=== PATIENT | male | born 1940 | race Caucasian/White ===

== ENCOUNTER 2018-11-03 06:52 | Day surgery (SDC) | payer MEDICARE, OTHER ==
[2018-11-03] MEDS ORDERED: Lactated Ringers 1,000 ML IV SCH (07:30)
[2018-11-03] MEDS ORDERED: Propofol 200 MG/20 ML SDV ONE (08:25)
[2018-11-03] MEDS ORDERED: fentaNYL 100 MCG/2 ML SDV ONE (08:25)
--- NOTE | 2018-11-03 15:32 | OR ---
DATE OF PROCEDURE: 11/03/2018 PREOPERATIVE DIAGNOSIS: History of colon polyps. POSTOPERATIVE DIAGNOSES: Peace-diverticulosis; 2 small colon polyps, transverse colon and 30 cm from the anal verge; and history of colon polyps. PROCEDURES: Colonoscopy to the ileocolic anastomosis, biopsy resection of polyps in the transverse colon and at 30 cm from the anal verge. SURGEON: Tal Mckeon MD ANESTHESIA: IV anesthesia with monitored anesthesia care. INDICATION: This 78-year-old white male is referred for a colonoscopy because of a history of colon polyps. He says his last colonoscopic exam was done at [facility], in [place], 6 years ago. I counseled him for the procedure, including risks and alternatives , and he gave his informed consent to proceed. DESCRIPTION OF PROCEDURE: The patient was placed in the left lateral decubitus position. IV anesthesia was administered by the Anesthesia Service. Time-out was held. A rectal exam was performed, which was unremarkable. The flexible video Olympus colonoscope was introduced through his anus, up his rectum and out his colon all the way to the ileocolic anastomosis. En route, we saw multiple diverticula throughout the entire colon. Additionally, en route to the anastomosis, we encountered a polyp in the transverse colon, which was removed with the biopsy forceps. Once the anastomosis was reached, the scope was slowly withdrawn examining the mucosa throughout. No additional mucosal abnormalities were noted, until we reached 30 cm from the anal verge. Here, another small polyp was seen which was removed with the biopsy forceps. The scope was brought back into the rectum , where it was retroflexed. The distal rectum appeared unremarkable. The scope was straightened and removed. He tolerated the procedure well. Tal Mckeon MD /[id number] MTDMer
== END 2018-11-03 10:15 | disposition home or self-care (01) ==
LOC: JP.SDS 06:52
PROVIDERS: ATTEND Surgery
DX: Z12.11 Encounter for screening for malignant neoplasm of colon (principal); D12.3 Benign neoplasm of transverse colon; K63.5 Polyp of colon; K57.30 Diverticulosis of large intestine without perforation or abscess without bleeding; K22.70 Barrett's esophagus without dysplasia; K21.9 Gastro-esophageal reflux disease without esophagitis; I50.9 Heart failure, unspecified; E78.5 Hyperlipidemia, unspecified; E66.9 Obesity, unspecified; N18.9 Chronic kidney disease, unspecified; Z86.73 Personal history of transient ischemic attack (TIA), and cerebral infarction without residual deficits; Z86.010 Personal history of colon polyps
CPT/HCPCS: 45380; J2704; J3010; J7120; 88305

== ENCOUNTER 2020-02-18 05:34 | Emergency (ER) | payer MEDICARE ==
--- NOTE | 2020-02-18 06:09 | EDM.PDOC ---
<OfficerCristopher - Last Filed: 02/18/20 06:06> ED HPI GENERAL MEDICAL PROBLEM - General Chief Complaint: General Stated Complaint: BLURRY VISION Time Seen by Provider: 02/18/20 05:57 Source of Information: Reports: Patient, RN Notes Reviewed History Limitations: Reports: No Limitations - History of Present Illness INITIAL COMMENTS - FREE TEXT/NARRATIVE: 79-year-old gentleman presents emergency department today with complaint of confusion, he believes he may have had a stroke this morning. He states he was unable to finish his normal routine he had an event which lasted about 3 to 4 minutes felt like he was going to was disorientated and confused. He was able to drive himself here he is able to ambulate without difficulty no loss of motor function he feels he is back to his baseline at this time however he feels something is off difficult for him to describe this. - Related Data Allergies Allergy/AdvReac Type Severity Reaction Status Date / Time azithromycin [From Zithromax] Allergy Dizziness Verified 02/18/20 05:49 Home Meds: Home Meds Aspirin [Halfprin] 81 mg PO DAILY 11/01/18 [History] Enalapril Maleate 10 mg PO DAILY 11/01/18 [History] Ferrous Sulfate [Feosol] 325 mg PO DAILY 11/01/18 [History] Omeprazole 20 mg PO Q48H 11/01/18 [History] Psyllium [Metamucil] 1 gm PO DAILY 11/01/18 [History] Simvastatin [Zocor] 20 mg PO DAILY 11/01/18 [History] Warfarin Sodium 5 mg PO ASDIRECTED 11/01/18 [History] Zinc Acetate [Galzin] 25 mg PO DAILY 11/01/18 [History] carvediloL [Carvedilol] 25 mg PO BID 11/01/18 [History] Tamsulosin HCl 1 tab PO Q48H 02/18/20 [History] Past Medical History HEENT History: Reports: Impaired Vision Cardiovascular History: Reports: Afib, Bypass, CAD, Heart Valve Replacement, High Cholesterol, Hypertension, NM Gastrointestinal History: Reports: Colon Polyp, GERD Genitourinary History: Reports: Prostate Disorder Musculoskeletal History: Reports: Arthritis, Back Pain, Chronic, Neck Pain, Chronic Neurological History: Reports: TIA Other Neuro History: tia 14 years ago Hematologic History: Reports: Anticoagulation Therapy - Infectious Disease History Infectious Disease History: Reports: Chicken Pox, Measles, Mumps - Past Surgical History Cardiovascular Surgical History: Reports: Coronary Artery Bypass, Valve Replacement, Other (See Below) Other Cardiovascular Surgeries/Procedures: Not a valve replacement, it was a repair with an O ring placed GI Surgical History: Reports: Colonoscopy, Hernia Repair/Other, Polypectomy, Small Bowel Other GI Surgeries/Procedures: intestinal surgery about 6 years ago Social & Family History - Tobacco Use Tobacco Use Status *Q: Never Tobacco User - Caffeine Use Caffeine Use: Reports: Coffee - Recreational Drug Use Recreational Drug Use: No ED ROS GENERAL - Review of Systems Review Of Systems: See Below Constitutional: Reports: No Symptoms HEENT: Reports: Vision Change (Now returned to baseline) Respiratory: Reports: No Symptoms Cardiovascular: Reports: No Symptoms GI/Abdominal: Reports: No Symptoms : Reports: No Symptoms Musculoskeletal: Reports: No Symptoms Neurological: Reports: Confusion Psychiatric: Denies: Anxiety ED EXAM, GENERAL - Physical Exam Exam: See Below Exam Limited By: No Limitations General Appearance: Alert, WD/WN, No Apparent Distress Eye Exam: Bilateral Eye: EOMI, Normal Inspection, PERRL Throat/Mouth: Normal Inspection, Normal Lips, Normal Teeth, Normal Gums, Normal Oropharynx, Normal Voice, No Airway Compromise Head: Atraumatic, Normocephalic Neck: Normal Inspection, Supple, Non-Tender, Full Range of Motion Respiratory/Chest: No Respiratory Distress, Lungs Clear, Normal Breath Sounds, No Accessory Muscle Use, Chest Non-Tender Cardiovascular: Regular Rate, Rhythm, No Murmur GI/Abdominal: Soft, Non-Tender Extremities: No Pedal Edema Neurological: Alert, Oriented, CN II-XII Intact, Normal Cognition, Normal Gait, No Motor/Sensory Deficits Departure - Departure Disposition: Home, Self-Care 01 Clinical Impression: TIA (transient ischemic attack) - Discharge Information Instructions: Transient Ischemic Attack, [id number] Referrals: Belinda Seals PA-C [Primary Care Provider] - Forms: ED Department Discharge Care Plan Goals: pt has a disabled at home and is willing to do a outpt work up for the TIA. He will have a ECho done prior to leaving. He will have a 48 hour holter monitor placed. He will see Belinda Seals in the next 2-3 days. Pt will return to ER if pt has any sig symptoms. Pt is on coumadin and his INR was ok. Sepsis Event Note (ED) - Evaluation Sepsis Screening Result: No Definite Risk <Letitia Knapp - Last Filed: 02/19/20 07:58> ED ROS GENERAL - Review of Systems Review Of Systems: See Below ED EXAM, GENERAL - Physical Exam Exam: See Below Course - Vital Signs Last Recorded V/S: Last Vital Signs Temp 34.7 C L 02/18/20 06:05 Pulse 72 02/18/20 06:05 Resp 11 L 02/18/20 06:05 BP 156/83 H 02/18/20 06:05 Pulse Ox 98 02/18/20 06:05 - Orders/Labs/Meds Orders: Active Orders 24 hr Category Date Time Status Echo Comp wo Cont [US] Stat Exams 02/18/20 07:41 Taken Holter Monitor 48 Hr [EK] Routine Ther 02/18/20 07:43 Ordered Labs: Laboratory Tests 02/18/20 02/18/20 02/18/20 Range/Units 06:00 06:00 06:00 WBC 5.6 (4.5-11.0) K/uL RBC 3.92 L (4.30-5.90) M/uL Hgb 11.7 L (12.0-15.0) g/dL Hct 37.4 L (40.0-54.0) % MCV 95 (80-98) fL MCH 30 (27-31) pg MCHC 31 L (32-36) % Plt Count 177 (150-400) K/uL Neut % (Auto) 69 H (36-66) % Lymph % (Auto) 18 L (24-44) % Lamar % (Auto) 10 H (2-6) % Eos % (Auto) 3 (2-4) % Baso % (Auto) 1 (0-1) % PT 24.5 H (9.5-12.0) sec INR 2.28 H (0.80-1.20) Sodium 137 L (140-148) mmol/L Potassium 4.8 (3.6-5.2) mmol/L Chloride 104 (100-108) mmol/L Carbon Dioxide 26 (21-32) mmol/L Anion Gap 11.8 (5.0-14.0) mmol/L BUN 20 H (7-18) mg/dL Creatinine 1.4 H (0.8-1.3) mg/dL Est Cr Clr Drug Dosing 44.18 mL/min Estimated GFR (MDRD) 49 L (>60) Glucose 108 H (74-106) mg/dL Calcium 8.5 (8.5-10.1) mg/dL Total Bilirubin 0.5 (0.2-1.0) mg/dL AST 29 (15-37) U/L ALT 26 (12-78) U/L Alkaline Phosphatase 82 (46-116) U/L Troponin I < 0.017 (0.000-0.056) ng/mL Total Protein 6.8 (6.4-8.2) g/dL Albumin 3.4 (3.4-5.0) g/dL Globulin 3.4 (2.3-3.5) g/dL Albumin/Globulin Ratio 1.0 L (1.2-2.2) - Re-Assessments/Exams Free Text/Narrative Re-Assessment/Exam: 02/18/20 07:40 pt was very clear and was up ambulating. He had been doing some work on the floor and had some aching in chest. His Ekg looked good. His cat scan of the head was normal except for aging changes. 02/18/20 07:44 02/19/20 07:56 pt insisted on going home because of his . He had a echo prior to leaving which was normal. He had a 48 hour holter monitor. He will see Belinda Seals in the next 2-3 days. Departure - Departure Time of Disposition: 10:10 Condition: Fair - My Orders Last 24 Hours: My Active Orders 02/18/20 07:41 Echo Comp wo Cont [US] Stat 02/18/20 07:43 Holter Monitor 48 Hr [EK] Routine - Assessment/Plan Last 24 Hours: My Active Orders 02/18/20 07:41 Echo Comp wo Cont [US] Stat 02/18/20 07:43 Holter Monitor 48 Hr [EK] Routine
--- NOTE | 2020-02-18 07:14 | CRLCT ---
INDICATION: Confusion COMPARISON: None TECHNIQUE: CT examination of the head was performed as axial sections without intravenous contrast. Images were obtained from the vertex of the skull through the skull base. Please note that all CT scans at this facility use dose modulation, iterative reconstruction, and/or weight-based dosing when appropriate to reduce radiation dose to as low as reasonably achievable. FINDINGS: The brain shows no sign of mass lesion, mass effect, hemorrhage, or edema. There are involutional changes. There is moderate cortical atrophy and there is moderate white matter disease. There is no hydrocephalus. The visualized portions of the orbits are normal in appearance. The osseous structures are normal in appearance with no sign of abnormality in the skull base or calvarium. IMPRESSION: Involutional changes. No acute-appearing findings. Please note that all CT scans at this facility use dose modulation, iterative reconstruction, and/or weight-based dosing when appropriate to reduce radiation dose to as low as reasonably achievable. Dictated by Ant Méndez MD @ Feb 18 2020 7:11AM Signed by Dr. Ant Méndez @ Feb 18 2020 7:13AM
--- NOTE | 2020-02-19 12:09 | LETTER ---
02/19/[address] [address] [facility] [place] [id number] RE: LEROY GARZA : 1940 Dear Leroy: You recently were at the emergency room and at that time you had an episode where you felt very confused and were not able to function and do your usual morning activities. For this reason, a CAT scan of the head was obtained while you were in the ER, which was found to be normal. You did have an echocardiogram and the echo at this point shows good heart function, regular rhythm, and did not show any real significant valvular abnormalities. There were no sign of clot present in the atrium. At this time, I would consider this a normal for age echocardiogram. Sincerely, /[id number]
== END 2020-02-18 10:05 | disposition home or self-care (01) ==
LOC: JP.ED 05:34
DX: G45.9 Transient cerebral ischemic attack, unspecified (principal); I10 Essential (primary) hypertension; I25.10 Atherosclerotic heart disease of native coronary artery without angina pectoris; I48.91 Unspecified atrial fibrillation; E78.00 Pure hypercholesterolemia, unspecified; Z88.1 Allergy status to other antibiotic agents; Z79.82 Long term (current) use of aspirin; Z79.899 Other long term (current) drug therapy
CPT/HCPCS: 36415; 70450; 80053; 84484; 85025; 85610; 93005; 93225; 93226; 93306; 99285-25

== ENCOUNTER 2024-09-25 15:13 | Emergency (ER) | payer MEDICARE ==
[2024-09-25] MEDS ORDERED: Sodium Chloride 0.9% 10 ML Syringe FLUSH PRN (15:15)
[2024-09-25 15:22] LABS: BASOPHILS ABSOLUTE AUTO 0.03 K/uL (0.00-0.10); BASOPHILS PERCENT AUTO 0.3 % (0.1-1.3); EOSINOPHILS ABSOLUTE AUTO 0.29 K/uL (0.00-0.40); EOSINOPHILS PERCENT AUTO 3.2 % (0.0-5.4); HEMATOCRIT 36.9 % (38.4-49.7); HEMOGLOBIN 12.1 g/dL (12.9-16.9); IMMATURE GRAN PERCENT AUTO 0.2 % (0.0-0.7); LYMPHOCYTES ABSOLUTE AUTO 1.24 K/uL (0.8-3.3); LYMPHOCYTES PERCENT AUTO 13.8 % (11.4-47.7); MEAN CORPUSCULAR HEMOGLOBIN 30.4 pg (31.6-35.5); MEAN CORPUSCULAR HGB CONC 32.8 g/dL (31.6-35.5); MEAN CORPUSCULAR VOLUME 92.7 fL (81.4-99.0); MONOCYTES PERCENT AUTO 7.8 % (3.3-12.6); NEUTROPHILS ABSOLUTE AUTO 6.73 K/uL (1.0-7.6); NEUTROPHILS PERCENT AUTO 74.7 % (40.0-78.1); PLATELET COUNT,PLT 185 K/uL (130-375); RED BLOOD CELL COUNT 3.98 M/uL (4.14-5.76)
[2024-09-25 15:24] LABS: IMMATURE GRAN ABSOLUTE AUTO 0.02 K/uL (0.00-0.23)
[2024-09-25 15:43] LABS: INR 1.1; PROTHROMBIN TIME 10.8 sec (9.2-10.6); PTT,PARTIAL THROMBOPLSTIN TIME 29.7 sec (21.8-27.3)
[2024-09-25 15:46] LABS: CALCIUM 9.5 mg/dL (8.5-10.1); CREATININE 1.5 mg/dL (0.8-1.3); POTASSIUM,K 4.6 mmol/L (3.6-5.2); TROPONIN I HIGH SENSITIVITY 17.2 pg/mL (<=60.3)
[2024-09-25] MEDS: Iopamidol 755 Mg/ML 100 ML Bottle IV SCH (15:51)
[2024-09-25] MEDS: Sodium Chloride 0.9% 10 ML Syringe FLUSH ONE (15:52)
[2024-09-25] MEDS: Sodium Chloride 0.9% 100 ML IV SCH (15:52)
[2024-09-25 15:57] LABS: ANION GAP 14.6 mmol/L (5.0-14.0); EST CRCL DRUG DOSING (CG) 37.85 mL/min
[2024-09-25] MEDS: Sodium Chloride 0.9% 1,000 ML IV ONE (17:59)
== END 2024-09-25 19:41 ==
LOC: JP.ED 15:13
DX: H53.8 Other visual disturbances (principal); R42 Dizziness and giddiness; I48.91 Unspecified atrial fibrillation; I25.10 Atherosclerotic heart disease of native coronary artery without angina pectoris; I25.2 Old myocardial infarction; I10 Essential (primary) hypertension; E78.00 Pure hypercholesterolemia, unspecified; K21.9 Gastro-esophageal reflux disease without esophagitis; M19.90 Unspecified osteoarthritis, unspecified site; Z95.2 Presence of prosthetic heart valve; Z88.1 Allergy status to other antibiotic agents; Z79.01 Long term (current) use of anticoagulants; Z79.82 Long term (current) use of aspirin; Z79.899 Other long term (current) drug therapy
CPT/HCPCS: 36415; 70450; 70496; 70498; 80048; 82947; 84484; 85025; 85610; 85730; 93005; 96360; 99285; J7030; Q9967

== ENCOUNTER 2024-10-06 16:50 | Emergency (ER) | payer MEDICARE | END 2024-10-06 18:34 | disposition home or self-care (01) | LOC: JP.ED 16:50 | DX: R42 Dizziness and giddiness (principal); I48.91 Unspecified atrial fibrillation; I25.10 Atherosclerotic heart disease of native coronary artery without angina pectoris; I10 Essential (primary) hypertension; E78.00 Pure hypercholesterolemia, unspecified; I25.2 Old myocardial infarction; Z86.73 Personal history of transient ischemic attack (TIA), and cerebral infarction without residual deficits; Z88.1 Allergy status to other antibiotic agents; Z79.82 Long term (current) use of aspirin; Z79.899 Other long term (current) drug therapy; Z79.01 Long term (current) use of anticoagulants | CPT/HCPCS: 99283 ==